=== PATIENT | female | born 1985 | race Caucasian/White ===

== ENCOUNTER → 2016-05-06 | Outpatient (CLI) | payer MEDICAID, OTHER ==
[~2016-05-06] MED LIST: ACET-703 PO; BENA25CA4; CARV12.5 PO; FERR325T PO; IBUP-232 PO; LEVO13.5 I-UTERINE; OXYC1TAB63 PO; PERI8.6T PO; PREN1CHW7 PO
== END ==
LOC: HPND 09:49
DX: O35.2XX0 Maternal care for (suspected) hereditary disease in fetus, not applicable or unspecified (principal); Q87.40 Marfan syndrome, unspecified; Z95.2 Presence of prosthetic heart valve; Z3A.25 25 weeks gestation of pregnancy
CPT/HCPCS: 76811; 76825; 76827; 93325

== ENCOUNTER → 2016-06-04 | Outpatient (CLI) | payer MEDICAID | LOC: HPND 09:38 | DX: O35.2XX0 Maternal care for (suspected) hereditary disease in fetus, not applicable or unspecified (principal); Q87.40 Marfan syndrome, unspecified; Z95.2 Presence of prosthetic heart valve; Z3A.30 30 weeks gestation of pregnancy | CPT/HCPCS: 76816 ==

== ENCOUNTER → 2016-07-04 | Outpatient (CLI) | payer MEDICAID | LOC: HPND 09:24 | PROVIDERS: ATTEND Obstetrics & Gynecology | DX: O35.2XX0 Maternal care for (suspected) hereditary disease in fetus, not applicable or unspecified (principal); Z3A.34 34 weeks gestation of pregnancy | CPT/HCPCS: 76816 ==

== ENCOUNTER → 2016-07-23 | Outpatient (CLI) | payer MEDICAID | LOC: HPND 09:37 | PROVIDERS: ATTEND Obstetrics & Gynecology | DX: O35.2XX0 Maternal care for (suspected) hereditary disease in fetus, not applicable or unspecified (principal) | CPT/HCPCS: 76816 ==

== ENCOUNTER 2016-08-08 08:10 | Inpatient (IN) | payer MEDICAID ==
[2016-08-08] VITALS (8 sets, daily range): BP systolic 105–138; BP diastolic 69–83; PULSE 76–85; RESP 15–18; TEMP 97.7–98.9
[~2016-08-08] VITALS: Ht 182.9 cm; Wt 80.3 kg
[~2016-08-08 08:10] MED LIST changes: -FERR325T PO; -IBUP-232 PO; -LEVO13.5 I-UTERINE; -OXYC1TAB63 PO; -PERI8.6T PO
[2016-08-08] MEDS ORDERED: LACTATED RINGER'S 1000 ML INJ 1,000 ML IV ONE (09:31)
[2016-08-08] MEDS ORDERED: ceFAZolin 2 GM PREMIX 50 ML IV ONE (09:45)
[2016-08-08 09:48] LABS: AUTOMATED NEUTROPHIL # 8.8 TH/MM3 (1.8-7.7); BASOPHIL % 0.3 % (0.0-2.0); EOSINOPHIL # 0.1 TH/MM3 (0-0.4); HEMATOCRIT 35.4 % (35.0-46.0); HEMO FLAGS DIFF FINAL; LYMPH % 16.5 % (9.0-44.0); LYMPHOCYTE # 1.9 TH/MM3 (1.0-4.8); MEAN CELL VOLUME 83.7 FL (80.0-100.0); MEAN CORPUSCULAR HEMOGLOBIN 27.3 PG (27.0-34.0); MEAN CORPUSCULAR HGB CONC 32.6 % (32.0-36.0); MONO % 6.2 % (0.0-8.0); PLATELET COUNT 210 TH/MM3 (150-450); RED BLOOD COUNT 4.23 MIL/MM3 (4.00-5.30); RED CELL DISTRIBUTION WIDTH 15.4 % (11.6-17.2); WHITE BLOOD COUNT 11.6 TH/MM3 (4.0-11.0)
[2016-08-08 10:01] LABS: BACTERIA, URINE RARE /hpf; BLOOD, URINE NEG (NEG); GLUCOSE,URINE NEG (NEG); HYALINE CAST, URINE 1 /lpf (RARE); KETONE, URINE NEG (NEG); MUCUS URINE FEW /lpf (OCC); NITRITE,URINE NEG (NEG); PH, URINE 6.5 (5.0-8.5); SQUAMOUS EPITHELIAL CELL URINE 13 /hpf (0-5); URINE COLOR YELLOW (YELLW/STRAW)
[2016-08-08] MEDS ORDERED: LACTATED RINGER'S 1000 ML INJ 1,000 ML IV SCH ×2 (10:01→17:40)
[2016-08-08 10:04] LABS: COMMENT (UR) CATH-CULTURE IND; CULTURE IF INDICATED CATH CULTURE IND
[2016-08-08] MEDS ORDERED: AMPICILLIN INJ 2,000 MG in SODIUM CHLORIDE 0.9% INJ 100 ML IV ONE (10:45)
--- NOTE | 2016-08-08 11:03 | HHI.HP ---
HPI Chief Complaint section Date Seen: Aug 08, 2016 Travel History International Travel<30 Days: No Contact w/Intl Traveler<30Days: No History of Present Illness HPI Ms. Ortiz is a 30 yo at 39 2/7 weeks with PMH of Marfan's syndrome who presents for scheduled section. Ms. Ortiz reports that she is doing well at this time. Patient does not report shortness of breath, leg swelling, cough, chest pain, palpitations, headaches/vision changes, dysuria, or other symptoms at this time. Patient reports that she feels sporadic contractions but not irregular contractions. Patient reports normal movement. No reported loss of vaginal fluid or vaginal bleeding. Patient reportedly gets cardiology care for Marfan's at [facility]. Per review of records, patient's last echocardiogram was 07/2016; patient with normal ejection fraction/LV function. Bioprosthetic valve visualized. Trace mitral and tricuspid regurg. Patient also reports history of Ledezma dez placement for severe scoliosis. Patient on carvedilol 12.5 mg twice a day; she reportedly has had symptoms of palpitations dictations but recent Holter monitor 03/2016 with no arrhythmia other than PACs/PVCs. Para: 0 : 1 History Past Medical History Narrative Medical Marfan syndrome Psoriasis Raynaud's Obstetric History Obstetric History G1 Past Surgical History Narrative Surgical Spinal fusion for scoliosis Bovine mitral valve replacement Family History Narrative Family History FatherMarfan's syndrome Cousinneurofibromatosis Unspecified breast cancer Thyroid cancer Social History Narrative Social History Quit smoking upon learned she is Alcohol Use: No Tobacco Use: No Substance Abuse: No Allergies-Medications (Allergen,Severity, Reaction): Coded Allergies: No Known Allergies (Unverified , 07/31/16) Home Meds Active Scripts Vit W/ Ferric Phospha (Vitafol Gummies 3.33-0.333-34.8 mg)1 Chw Chw3 Tab PO DAILY #90 BOTTLE Ref 11 Prov:Virginia Mares 06/20/16 Reported Medications Diphenhydramine HCl (Benadryl Allergy)25 Mg Cap 07/23/16 Acetaminophen (Tylenol Extra Strength)500 Mg Tab1,000 Mg PO ONCE Ref 0 07/23/16 Carvedilol (Coreg)12.5 Mg Tab12.5 Mg PO BID #60 TAB Ref 0 06/20/16 Review of Systems General / Constitutional: No: Fever, Chills Eyes: No: Blurred Vision HENT: No: Headaches Cardiovascular: No: Chest Pain or Discomfort Respiratory: No: Short of Breath Gastrointestinal: No: Nausea, Vomiting Genitourinary: No: Frequency Physical Exam BP 100/61 HR 63 RR 16 T 98.2 Narrative GENERAL: Well-nourished, well-developed patient. SKIN: Warm and dry. HEAD: Normocephalic and atraumatic. EYES: No scleral icterus. No injection or drainage. ENT: No nasal drainage noted. Mucous membranes pink. Airway patent. CARDIOVASCULAR: Regular rate and rhythm without murmurs. Normal perfusion RESPIRATORY: CTAB, normal rate ABDOMEN/GI: Abdomen soft, non-tender, bowel sounds present, no rebound, no guarding Gravid EXTREMITIES: No cyanosis or edema. NEUROLOGICAL: Awake and alert. Motor and sensory function grossly within normal limits. GENITOURINARY: Uterine Contractions: Occasional, >10 min interval, on CTG FHT's: Category:1 Baseline: 130 Reactive: Y Variability: Mod Decels: None Data Data Vital Signs Reviewed: Yes Orders Admit To Inpatient (08/08/16 ) Code Status (08/08/16 09:31) Vital Signs (Adult) .ON ADMISSION (08/08/16 09:31) Activity Oob Ad Kristine (08/08/16 09:31) Heart (08/08/16 09:31) Urinary Catheter Management RONNIE.Q8H (08/08/16 09:31) ^ Preps (08/08/16 09:31) Scd / Mo / Foot Pump RONNIE.QSHIFT (08/08/16 09:31) ^ Ultrasound For Locatio (08/08/16 09:31) Diet Npo (08/08/16 Breakfast) Lactated Ringer's 1000 Ml Inj (Lr 1000 M (08/08/16 09:31) Lactated Ringer's 1000 Ml Inj (Lr 1000 M (08/08/16 10:01) Citric Acid-Sodium Citrate Liq (Bicitra (08/08/16 11:15) Type And Screen (08/08/16 09:31) Complete Blood Count With Diff (08/08/16 09:31) Urinalysis - C+S If Indicated (08/08/16 09:31) Inpatient Certification (08/08/16 ) Specimen To Be Collected PRN (08/08/16 09:31) Cefazolin 2 Gm Premix (Ancef 2 Gm Premix (08/08/16 09:45) Urine Culture (08/08/16 08:39) Labs Laboratory Tests Test 08/08/16 08:39 White Blood Count 11.6 Red Blood Count 4.23 Hemoglobin 11.5 Hematocrit 35.4 Mean Corpuscular Volume 83.7 Mean Corpuscular Hemoglobin 27.3 Mean Corpuscular Hemoglobin 32.6 Concent Red Cell Distribution Width 15.4 Platelet Count 210 Mean Platelet Volume 8.9 Neutrophils (%) (Auto) 76.0 Lymphocytes (%) (Auto) 16.5 Monocytes (%) (Auto) 6.2 Eosinophils (%) (Auto) 1.0 Basophils (%) (Auto) 0.3 Neutrophils # (Auto) 8.8 Lymphocytes # (Auto) 1.9 Monocytes # (Auto) 0.7 Eosinophils # (Auto) 0.1 Basophils # (Auto) 0.0 CBC Comment DIFF FINAL Differential Comment Urine Color YELLOW Urine Turbidity HAZY Urine pH 6.5 Urine Specific [place] 1.011 Urine Protein NEG Urine Glucose (UA) NEG Urine Ketones NEG Urine Occult Blood NEG Urine Nitrite NEG Urine Bilirubin NEG Urine Urobilinogen LESS THAN 2.0 Urine Leukocyte Esterase NEG Urine RBC LESS THAN 1 Urine WBC 2 Urine Squamous Epithelial 13 Cells Urine Bacteria RARE Urine Hyaline Casts 1 Urine Mucus FEW Microscopic Urinalysis Comment CATH-CULTURE IND Blood Type A POSITIVE Blood Bank Comment Date/Time Procedure Status Source Growth 08/08/16 08:39 Urine Culture Received Urine Catheterized Urine Pending Assessment/Plan Problem List: (1) Marfan syndrome (2) Term (3) Mitral valve replaced Assessment and Plan 30 yo at 39 2/7 weeks with PMH of Marfan's syndrome who presents for scheduled delivery -PMH/PSH Marfan's Syndrome/ s/p Bovine valve replacement -07/22/2016 echo w/ normal systolic function -PSH Ledezma's rods/spinal fusion for scoliosis -Cat 1 rhythm -No symptoms of cardiovascular compromise Plan: -Will plan for delivery as scheduled -Will give pre-op Ampicillin 2g IV in addition to Ancef 2gm IV -Will order blood typing/screen, CBC, UA -Continue to monitor EFM -Continue home Carvedilol 12.5mg BID Remarks Supplemental history obtained by nursing staff patient had prior history of IV drug abuse in 2011; we'll plan to clarify further. UDS added to labs Florin Foster MD R2 Aug 08, 2016 11:02
[2016-08-08] MEDS ORDERED: CITRIC ACID-SODIUM CITRATE LIQ 30 ML UDC PO SCH (11:15)
[2016-08-08] MEDS ORDERED: OXYTOCIN 10 UNIT/ML AMP ONE (11:21)
[2016-08-08 12:04] LABS: BLOOD GAS BASE EXCESS -0.7 mmol/L (-2-2); BLOOD GAS O2 HGB SATURATION 39 % (90-100); CORD BLOOD GAS HCO3 24 mmol/L (21-29); CORD BLOOD GAS PCO2 47 mmHG (34-78); CORD BLOOD GAS PH 7.34 (7.14-7.42)
[2016-08-08 12:05] LABS: CORD BLOOD GAS PO2 21 mmHG (3.0-40.0); DRAW SITE CORD BLOOD; STAT NO
[2016-08-08] MEDS ORDERED: fentaNYL CITRATE 250 MCG/5 ML AMP ONE (12:23)
[2016-08-08] MEDS ORDERED: ACETAMINOPHEN 1000 MG/100 ML VIAL IV ONE ×2 (12:23→13:00)
[2016-08-08] MEDS ORDERED: HYDROmorphone HCL PF 2 MG/ML VIAL ONE (12:24)
[2016-08-08 12:37] LABS: AMPHETAMINE, URINE NEG (NEG); BARBITURATES, URINE NEG (NEG); COCAINE, URINE NEG (NEG)
--- NOTE | 2016-08-08 12:40 | PD.OB.DELI ---
Procedure Note Section Procedure Pre Op Diagnosis: (1) Marfan syndrome (2) Term (3) Mitral valve replaced (4) Severe scoliosis Pre Op Diagnosis s/p orta rods Post Op Diagnosis: Performed by Rosa Zimmerman Procedure: Primary Low Transverse Sec Indication for delivery: Maternal medical problems Informed consent obtained: For anesthesia Confirmed correct: Patient, Procedure, Time-out taken Anesthesia: Other (GETA) Medication prior to procedure: Antacids, Antibiotics, IV Urinary catheter: Inserted using sterile technique Sterile preparation: Duraprep Position: Supine with wedge to left side Operative Features Skin Incision: Pfannenstiel Uterine Incision: Low transverse w/knife / blunt ext Membranes Ruptured: Artificially, Appearance of fluid (moderate meconium) Presentation: Occiput anterior Time of : 11:39 Delivery of infant: Assisted : Male One Minute : 6 Five Minute : 9 Weight: 7#1oz, 3210gms Status of infant: Viable Placenta delivered: Intact Medications: Antibiotics Estimated blood loss: 800 Procedure tolerated: Well Maternal Condition: Stable Condition: Stable Rosa Zimmerman MD Aug 08, 2016 12:40
[2016-08-08] MEDS ORDERED: OXYTOCIN 30 UNITS-500ML PREMIX 500 ML IV ONE (12:45)
[2016-08-08] MEDS ORDERED: ONDANSETRON HCL 4 MG/2 ML VIAL IV PUSH PRN (12:45)
[2016-08-08] MEDS ORDERED: SODIUM CHLORIDE 0.9% FLUSH 10 ML FLUSH IV FLUSH PRN (12:45)
[2016-08-08] MEDS ORDERED: oxyCODONE/ACETAMINOPHEN 5 MG/325 MG TAB PO PRN (12:45)
[2016-08-08] MEDS ORDERED: HYDROmorphone HCL PCA 6 MG/30 ML IV ONE (12:52)
[2016-08-08] MEDS ORDERED: NALOXONE HCL 0.4 MG/ML AMP IV PRN (13:00)
[2016-08-08] MEDS ORDERED: HYDROmorphone HCL PCA 6 MG/30 ML IV SCH (13:00)
[2016-08-08] MEDS: HYDROmorphone HCL PF 1 MG/ML VIAL IV SCH ×4 (13:05→13:20)
[2016-08-08] MEDS ORDERED: PROPOFOL 200 MG/20 ML AMP IV ONE (13:26)
[2016-08-08] MEDS ORDERED: LACTATED RINGER'S 1,000 ML BAG IV ONE (13:26)
[2016-08-08] MEDS: diphenhydrAMINE HCL 25 MG CAP PO PRN (19:28)
[2016-08-08] MEDS: CARVEDILOL 12.5 MG TAB PO SCH (20:55)
[2016-08-08] MEDS ORDERED: SODIUM CHLORIDE 0.9% FLUSH 10 ML FLUSH IV FLUSH SCH (21:00)
[2016-08-08] MEDS: PCA - TOTAL MG DILAUDID DELIVERED PER SHIFT OTHER SCH (22:00)
[2016-08-08] MEDS ORDERED: OXYTOCIN 30 UNITS-500ML PREMIX 500 ML IV PRN (22:45)
[2016-08-09 00:29] VITALS: BP 124/67; PULSE 86; RESP 16; TEMP 98.8
[2016-08-09] MEDS: diphenhydrAMINE HCL 25 MG CAP PO PRN (01:46)
[2016-08-09 06:00] VITALS: BP 118/83; PULSE 86; RESP 16; TEMP 97.9
[2016-08-09] MEDS: PCA - TOTAL MG DILAUDID DELIVERED PER SHIFT OTHER SCH (06:00)
[2016-08-09 06:37] LABS: AUTOMATED NEUTROPHIL # 9.5 TH/MM3 (1.8-7.7); BASOPHIL # 0.1 TH/MM3 (0-0.2); BASOPHIL % 0.4 % (0.0-2.0); EOSINOPHIL # 0.1 TH/MM3 (0-0.4); EOSINOPHIL % 0.4 % (0.0-4.0); HEMATOCRIT 28.7 % (35.0-46.0); HEMO FLAGS DIFF FINAL; LYMPH % 14.6 % (9.0-44.0); LYMPHOCYTE # 1.8 TH/MM3 (1.0-4.8); MEAN CELL VOLUME 83.8 FL (80.0-100.0); MEAN CORPUSCULAR HEMOGLOBIN 28.6 PG (27.0-34.0); MEAN CORPUSCULAR HGB CONC 34.1 % (32.0-36.0); MONO % 7.7 % (0.0-8.0); NEUT % 76.9 % (16.0-70.0); PLATELET COUNT 190 TH/MM3 (150-450); RED BLOOD COUNT 3.43 MIL/MM3 (4.00-5.30); RED CELL DISTRIBUTION WIDTH 14.8 % (11.6-17.2); WHITE BLOOD COUNT 12.3 TH/MM3 (4.0-11.0)
--- NOTE | 2016-08-09 07:09 | HHI.OB ---
Subjective Post Operative Day: 1 Remarks 30 year old female s/p elective at 39/2 wks gestation, POD 1. AFVSS. Patient reports she is feeling well. Bleeding is decreasing and pain is well-controlled. She is formula feeding and bonding well with baby. Ambulating without difficulties. She is tolerating a liquid diet without nausea or vomiting and is requesting solid food. She has not had a bowel movement but does not want a stool softener as she reports having IBS. Denies chest pain, dysuria, shortness of breath, or calf pain. (Stephanie Casanova MD R2) Objective Vitals/I&O Vital Signs Date Time Temp Pulse Resp B/P Pulse Ox O2 Delivery O2 Flow Rate FiO2 08/09/16 06:00 97.9 86 16 118/83 08/09/16 06:00 16 08/09/16 00:29 98.8 08/09/16 00:29 86 16 124/67 08/08/16 22:00 14 08/08/16 21:51 14 08/08/16 19:54 98.0 81 15 116/75 08/08/16 15:10 85 105/71 08/08/16 15:10 98.9 16 08/08/16 13:45 98.0 79 17 128/72 08/08/16 13:30 76 17 127/69 08/08/16 13:15 81 16 121/69 08/08/16 13:00 80 18 08/08/16 12:52 17 08/08/16 12:40 18 08/08/16 12:40 81 123/81 08/08/16 12:27 97.7 17 08/08/16 12:27 82 138/83 (Stephanie Casanova MD R2) Result Diagram: 08/10/16 0601 Objective Remarks GENERAL: Well-nourished, well-developed patient. CARDIOVASCULAR: Regular rate and rhythm without murmurs, gallops, or rubs. RESPIRATORY: Breath sounds equal bilaterally. No accessory muscle use. ABDOMEN/GI: Abdomen soft, non-tender. Incision: Bandage Clean, dry and intact. Fundus: Firm, non-tender at umbilicus. GENITOURINARY: Light to moderate bleeding. EXTREMITIES: No cyanosis or edema, non-tender, without signs of DVT. Medications and IVs Current Medications Medications (Trade) Dose Ordered Sig/Mike Route Start Time Stop Time Status Last Admin Lactated Ringer's 1,000 ml @ 150 mls/hr Q6H40M IV 08/08/16 10:01 08/08/16 09:00 (Lr 1000 ml Inj) 1,000 ml @ 100 mls/hr Q10H IV 08/08/16 17:40 08/09/16 13:39 08/08/16 20:55 (NS Flush) 2 ml BID IV FLUSH 08/08/16 21:00 (NS Flush) 2 ml UNSCH PRN IV FLUSH 08/08/16 12:45 (Mylicon Chew) 80 mg QID PRN PO 08/08/16 12:45 (Motrin) 600 mg Q6H PRN PO 08/08/16 12:45 (Percocet 5-325 Mg) 1 tab Q4H PRN PO 08/08/16 12:45 (Percocet 5-325 Mg) 2 tab Q4H PRN PO 08/08/16 12:45 (M-M-R Ii Inj) 0.5 ml ONCE ONCE SQ 08/09/16 16:00 08/09/16 16:01 (Boostrix Inj) 0.5 ml ONCE ONCE IM 08/09/16 16:00 08/09/16 16:01 (Zofran Inj) 4 mg Q6H PRN IV PUSH 08/08/16 12:45 (Narcan Inj) 0.4 mg UNSCH PRN IV 08/08/16 13:00 (Benadryl) 25 mg Q6H PRN PO 08/08/16 13:00 08/09/16 01:46 (Dilaudid GLUER MACHINE SETUP OPERATOR Inj) 6 mg UNSCH IV 08/08/16 13:00 08/08/16 21:51 GLUER MACHINE SETUP OPERATOR Dosage Infused (Pha) 1 Q8HR OTHER 08/08/16 14:00 08/09/16 06:00 (Coreg) 12.5 mg BID PO 08/08/16 21:00 08/08/16 20:55 (Stephanie Casanova MD R2) Assessment/Plan Problem List: (1) Marfan syndrome (2) Term (3) Mitral valve replaced Assessment and Plan 30 yo female s/p elective POD 1. -PMH/PSH Marfan's Syndrome/ s/p Bovine valve replacement -07/22/2016 echo w/ normal systolic function -PSH Ledezma's rods/spinal fusion for scoliosis - AFVSS - Continue routine care * Continue home Carvedilol 12.5mg BID - Motrin and Percocet PRN pain - Encourage OOB - Pelvic rest x 6 wks. Will need a f/u appt in 1wk for incision check. - Contraception: Plans on getting an IUD placement as an outpatient - Recommend post follow up in 6 wks with A woman - Anticipate D/C in 1-[address] Zimmerman (Stephanie Casanova MD R2) Collaborating Comments Discussed patient care with resident service, I agree with management plan. ( Rosa Zimmerman MD) Stephanie Casanova MD R2 Aug 09, 2016 07:08 Rosa Zimmerman MD Aug 11, 2016 20:50
[2016-08-09 08:08] VITALS: BP 120/82; PULSE 87; RESP 18; TEMP 98.3
[2016-08-09] MEDS: CARVEDILOL 12.5 MG TAB PO SCH ×2 (08:54→21:02)
[2016-08-09] MEDS: SIMETHICONE 80 MG CHEWABLE TAB PO PRN ×2 (08:56→17:59)
[2016-08-09] MEDS: oxyCODONE/ACETAMINOPHEN 5 MG/325 MG TAB PO PRN ×2 (13:39→22:04)
[2016-08-09] MEDS: IBUPROFEN 600 MG TAB PO PRN ×2 (13:42→22:03)
[2016-08-09 14:40] VITALS: BP 134/85; PULSE 81; RESP 18; TEMP 98.4
[2016-08-09] MEDS ORDERED: DIPHTH/TETANUS/ACEL PERTUSSIS (BOOSTER) 0.5 ML VIAL/PFS IM ONE (16:00)
[2016-08-09] MEDS ORDERED: MEASLES, MUMPS, RUBELLA VACCINE 0.5 ML VIAL SQ ONE (16:00)
[2016-08-09 20:30] VITALS: BP 129/81; PULSE 87; RESP 16; TEMP 98.1
[2016-08-09] MEDS: ZOLPIDEM TARTRATE 5 MG TAB PO PRN (21:02)
[2016-08-10] MEDS: IBUPROFEN 600 MG TAB PO PRN ×3 (06:40→17:22)
[2016-08-10] MEDS: oxyCODONE/ACETAMINOPHEN 5 MG/325 MG TAB PO PRN ×4 (06:41→22:14)
[2016-08-10 06:42] LABS: HEMATOCRIT 30.7 % (35.0-46.0); MEAN CELL VOLUME 84.5 FL (80.0-100.0); MEAN CORPUSCULAR HEMOGLOBIN 28.2 PG (27.0-34.0); MEAN CORPUSCULAR HGB CONC 33.3 % (32.0-36.0); PLATELET COUNT 219 TH/MM3 (150-450); RED BLOOD COUNT 3.64 MIL/MM3 (4.00-5.30); RED CELL DISTRIBUTION WIDTH 14.9 % (11.6-17.2); REVIEW FLAG FINAL; WHITE BLOOD COUNT 11.1 TH/MM3 (4.0-11.0)
[2016-08-10 08:00] VITALS: BP 128/74; PULSE 83; RESP 18; TEMP 98.4
[2016-08-10] MEDS: CARVEDILOL 12.5 MG TAB PO SCH ×2 (08:29→21:06)
[2016-08-10] MEDS: DOCUSATE CALCIUM 240 MG CAP PO SCH (08:29)
--- NOTE | 2016-08-10 09:11 | HHI.OB ---
Subjective Post Operative Day: 2 Remarks 30-year-old female w/ PMHx of Marfan syndrome, who delivered via section on 08/08/2016. She is postoperative day #2. Her hemoglobin has been stable, and she's been afebrile and her vital signs at goal. She is on carvedilol 12.5 mg twice a day. She has a history of bilateral prosthetic valve replacement (mitral valve) and this has remained stable throughout her (evaluated by repeat echocardiograms). She denies any lower extremity edema, chest pain, shortness of breath. Her vaginal bleeding is less than her period. She is eating, ambulating, and her pain is well controlled. She does not want to breast-feed because she does not want to introduce any drugs into the baby. Objective Vitals/I&O Vital Signs Date Time Temp Pulse Resp B/P Pulse Ox O2 Delivery O2 Flow Rate FiO2 08/10/16 08:00 98.4 83 18 128/74 08/09/16 20:30 98.1 87 16 08/09/16 20:30 129/81 08/09/16 14:40 98.4 81 18 134/85 Result Diagram: 08/10/16 0601 Objective Remarks GENERAL: Well-nourished, well-developed patient. CARDIOVASCULAR: S3 heart gallop, faint murmur over the left sternal border. Periodic PVCs, good pulses to all extremities. RESPIRATORY: Breath sounds equal bilaterally. No accessory muscle use. ABDOMEN/GI: Abdomen soft, non-tender. Incision: Bandage Clean, dry and intact. Fundus: Firm, non-tender at umbilicus. GENITOURINARY: Light to moderate bleeding. EXTREMITIES: No cyanosis or edema, non-tender, without signs of DVT. Medications and IVs Current Medications Medications (Trade) Dose Ordered Sig/Mike Route Start Time Stop Time Status Last Admin (Lr 1000 ml Inj) 1,000 ml @ 150 mls/hr Q6H40M IV 08/08/16 10:01 08/08/16 09:00 (NS Flush) 2 ml BID IV FLUSH 08/08/16 21:00 (NS Flush) 2 ml UNSCH PRN IV FLUSH 08/08/16 12:45 (Mylicon Chew) 80 mg QID PRN PO 08/08/16 12:45 08/09/16 17:59 (Motrin) 600 mg Q6H PRN PO 08/08/16 12:45 08/10/16 06:40 (Percocet 5-325 Mg) 1 tab Q4H PRN PO 08/08/16 12:45 08/09/16 18:00 (Percocet 5-325 Mg) 2 tab Q4H PRN PO 08/08/16 12:45 08/10/16 06:41 (Zofran Inj) 4 mg Q6H PRN IV PUSH 08/08/16 12:45 (Narcan Inj) 0.4 mg UNSCH PRN IV 08/08/16 13:00 (Benadryl) 25 mg Q6H PRN PO 08/08/16 13:00 08/09/16 01:46 (Dilaudid QUALIFIED CRAFT WORKER ELECTRICIAN Inj) 6 mg UNSCH IV 08/08/16 13:00 08/08/16 21:51 QUALIFIED CRAFT WORKER ELECTRICIAN Dosage Infused (Pha) 1 Q8HR OTHER 08/08/16 14:00 08/09/16 06:00 (Coreg) 12.5 mg BID PO 08/08/16 21:00 08/10/16 08:29 (Ambien) 5 mg HS PRN PO 08/09/16 08:45 08/09/16 21:02 (Surfak) 240 mg DAILY PO 08/10/16 09:00 08/10/16 08:29 Assessment/Plan Problem List: (1) Marfan syndrome (2) Term (3) Mitral valve replaced Assessment and Plan 30 yo female s/p elective POD 2. - PMH/PSH Marfan's Syndrome/ s/p Bovine valve replacement -07/22/2016 echo w/ normal systolic function - PS Ledezma's rods/spinal fusion for scoliosis - AFVSS - Continue routine care * Continue home Carvedilol 12.5mg BID - HR is controlled - Motrin and Percocet PRN pain - Encourage OOB - Pelvic rest x 6 wks. Will need a f/u appt in 1wk for incision check. - Contraception: Plans on getting an IUD placement as an outpatient - Recommend post follow up in 6 wks - Anticipate D/C tomorrow 08/11/16. maritza El. Carlyle Torres MD R2 Aug 10, 2016 09:11
[2016-08-10 20:00] VITALS: BP 141/86; PULSE 84; RESP 16; TEMP 98.1
[2016-08-10] MEDS: ZOLPIDEM TARTRATE 5 MG TAB PO PRN (21:06)
[2016-08-11] MEDS: IBUPROFEN 600 MG TAB PO PRN ×3 (02:10→15:10)
[2016-08-11] MEDS: oxyCODONE/ACETAMINOPHEN 5 MG/325 MG TAB PO PRN ×3 (02:10→13:14)
[2016-08-11 08:25] VITALS: BP 121/76; PULSE 86; RESP 18; TEMP 98.1
--- NOTE | 2016-08-11 08:44 | HHI.OB ---
Subjective Post Operative Day: 3 Remarks Ms. Ortiz is a 30 yo w/ PMH Marfan Syndrome who is POD 3 from CS (08/08 at 1139) Patient afebrile with stable vital signs. Patient reports that she is doing well at this time and that her pain is controlled with Motrin and Percocet. Patient ambulating normally. Patient does not report shortness of breath, leg swelling, or dysuria. Patient formula feeding. Patient passing gas normally. Objective Vitals/I&O Vital Signs Date Time Temp Pulse Resp B/P Pulse Ox O2 Delivery O2 Flow Rate FiO2 08/11/16 08:25 98.1 86 18 121/76 08/10/16 20:00 98.1 84 16 141/86 Result Diagram: 08/10/16 0601 Objective Remarks GENERAL: Well-nourished, well-developed patient. CARDIOVASCULAR: Systolic murmur, periodic premature beats. Normal perfusion RESPIRATORY: CTAB, normal rate ABDOMEN/GI: Abdomen soft, non-tender. Incision: Clean, dry and intact. Fundus: Firm, non-tender at umbilicus. GENITOURINARY: Light to moderate bleeding. EXTREMITIES: No cyanosis or edema, non-tender, without signs of DVT. Medications and IVs Current Medications Medications (Trade) Dose Ordered Sig/Mike Route Start Time Stop Time Status Last Admin (Lr 1000 ml Inj) 1,000 ml @ 150 mls/hr Q6H40M IV 08/08/16 10:01 08/08/16 09:00 (NS Flush) 2 ml BID IV FLUSH 08/08/16 21:00 (NS Flush) 2 ml UNSCH PRN IV FLUSH 08/08/16 12:45 (Mylicon Chew) 80 mg QID PRN PO 08/08/16 12:45 08/09/16 17:59 (Motrin) 600 mg Q6H PRN PO 08/08/16 12:45 08/11/16 02:10 (Percocet 5-325 Mg) 1 tab Q4H PRN PO 08/08/16 12:45 08/09/16 18:00 (Percocet 5-325 Mg) 2 tab Q4H PRN PO 08/08/16 12:45 08/11/16 02:10 (Zofran Inj) 4 mg Q6H PRN IV PUSH 08/08/16 12:45 (Narcan Inj) 0.4 mg UNSCH PRN IV 08/08/16 13:00 (Benadryl) 25 mg Q6H PRN PO 08/08/16 13:00 08/09/16 01:46 (Dilaudid CAGE MANAGER Inj) 6 mg UNSCH IV 08/08/16 13:00 08/08/16 21:51 CAGE MANAGER Dosage Infused (Pha) 1 Q8HR OTHER 08/08/16 14:00 08/09/16 06:00 (Coreg) 12.5 mg BID PO 08/08/16 21:00 08/10/16 21:06 (Ambien) 5 mg HS PRN PO 08/09/16 08:45 08/10/16 21:06 (Surfak) 240 mg DAILY PO 08/10/16 09:00 08/10/16 08:29 Assessment/Plan Problem List: (1) Marfan syndrome (2) Term (3) Mitral valve replaced (4) examination following delivery Assessment and Plan 30 yo w/ PMH Marfan Syndrome who is POD 3 from CS (08/08 at 1139) Continue routine care -Continue to monitor VS, vaginal bleeding - Motrin and Percocet PRN pain - Encourage OOB - Pelvic rest x 6 wks - Contraception: Plans on getting an IUD placement as an outpatient - Patient advised to obtain incision check in 1 week - Anticipate D/C today PMH/PSH Marfan's Syndrome Impression: s/p Bovine valve replacement (07/22/2016 echo w/ normal systolic function) -Patient counselled to seek medical care with any peripartum cardiac/ respiratory concerns -Continue home Carvedilol 12.5mg BID per patient's Feeder Switchboard Operator Florin Foster MD R2 Aug 11, 2016 08:44
--- NOTE | 2016-08-11 08:44 | HHI.DCPOC ---
Discharge Care Plan Diagnosis: (1) examination following delivery Report Symptoms to Your Doctor -Temperate above 100.5 degrees -Redness, of incision or excessive or foul smelling drainage -Unusual pain or calf pain -Increased vaginal bleeding -Painful or difficulty urinating -Feelings of extreme sadness or anxiety after 2 weeks Goals to Promote Your Health * To prevent worsening of your condition and complications * To maintain your health at the optimal level Directions to Meet Your Goals Take your medications as prescribed Follow your dietary instruction Follow activity as directed Ensure plenty of rest for recovery Drink fluids for hydration Keep your appointments as scheduled Take your immunizations and boosters as scheduled If your symptoms worsen call your PCP, if no PCP go to Urgent Care Center or Emergency Room Smoking is Dangerous to Your Health. Avoid second hand smoke Call the 24-hour crisis hotline for domestic abuse at Florin Foster MD R2 Aug 11, 2016 08:44
[2016-08-11] MEDS ORDERED: IBUP-232 PO (08:51)
[2016-08-11] MEDS ORDERED: OXYC1TAB63 PO (08:51)
[2016-08-11] MEDS ORDERED: FERR325T PO (08:51)
[2016-08-11] MEDS ORDERED: PERI8.6T PO (08:51)
[2016-08-11] MEDS: DOCUSATE CALCIUM 240 MG CAP PO SCH (09:10)
[2016-08-11] MEDS: CARVEDILOL 12.5 MG TAB PO SCH (09:10)
--- NOTE | 2016-08-11 10:52 | MP ---
cc: MARY LUNDY M.D. DATE OF SURGERY: 08/08/2016. PREOPERATIVE DIAGNOSIS: 1. Marfan's syndrome. 2. Term . 3. History of bacterial endocarditis with a mitral valve replacement with a bovine valve. 4. Severe scoliosis corrected with Ledezma rods as a child. POSTOPERATIVE DIAGNOSIS: 1. Marfan's syndrome. 2. Term . 3. History of bacterial endocarditis with a mitral valve replacement with a bovine valve. 4. Severe scoliosis corrected with Ledezma rods as a child. OPERATIVE PROCEDURE PERFORMED: Primary low transverse section without extension. SURGEON: Mary Lundy MD. MANAGER APPLICATION: Florin Foster. ESTIMATED BLOOD LOSS: 800 cc. ANESTHETIC: General endotracheal anesthesia. MEDICATIONS: Ampicillin was given for cardiac prophylaxis and Ancef 2 grams was given IV. DRAINS: Pleitez to gravity. COMPLICATIONS: No complications. COUNTS: Correct x3. FINDINGS: 1. Normal tubes and ovaries bilaterally. The kidneys were both palpated. 2. Meconium-stained amniotic fluid. 3. 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 4. male. Apgars were 6 and 9 with moderate meconium stained amniotic fluid. The baby was 7 pounds 1 ounce, delivered in the vertex presentation. DESCRIPTION OF THE PROCEDURE IN DETAIL: The patient was taken back to the operating room and prepped and draped in the usual sterile fashion and placed in the dorsal supine position. After adequate anesthetic was obtained, a wedge was placed to her left side and a Pfannenstiel's incision was made in the skin and taken down to the fascia. The fascia was nicked in the midline and extended bilaterally. The fascia was noted to be very attenuated and no musculature was noted here in the abdominal cavity. The peritoneum was entered. An Seth retractor was placed. The uterus was noted to be abnormal at this time and a hysterotomy incision was made bluntly and extended bilaterally. The bag of water was ruptured at the infant's head was delivered to the operative field. Nuchal cord x1 was reduced and the rest of the body was delivered and then handed off to the resuscitation team for continued care. I doubly clamped the cord segment and it was taken for cord blood analysis and for arterial blood gas. The placenta was delivered intact spontaneously. The endometrial cavity was curetted with a moist laparotomy sponge. The hysterotomy incision was repaired using running locking chromic with good hemostasis at closure. The gutters were rendered free of all blood and clot material. The Seth was removed. Counts were correct. Fascia was closed with #1 PDS suture in a running fashion. The subcuticular tissue was made hemostatic with the bovie. The skin was closed both with a 3-0 Monocryl as well as Dermabond as her tissue appeared to be fairly weak and attenuated. The patient tolerated procedure well. She was taken back to the recovery room after extubation. MD HERMES Jiménez/JEANA /1:23 PM /10:42 AM MTDD
[2016-08-13 10:39] LABS: PHENCYCLIDINE URINE NEG (NEG)
[2016-08-13 10:40] LABS: ECSTASY (MDMA) UR NEG (NEG); HEROIN (6-ACETYLMORPHINE) UR NEG (NEG); K2 SPICE UR NEG (NEG); OBMETHADONE UR NEG (NEG)
[2016-08-13 10:41] LABS: BATH SALTS (MDPV) UR NEG (NEG); GABAPENTIN UR NEG (NEG); OXYCODONE (PERCODAN) NEG (NEG)
[2016-08-13 10:42] LABS: HYDROMORPHONE U NEG (NEG)
[2016-10-09] MEDS ORDERED: LEVO13.5 I-UTERINE (13:38)
== END 2016-08-11 15:59 | disposition home or self-care (01) | DRG 765 ==
LOC: H2EB 08:10 → H1EA 14:05
PROVIDERS: ADMIT Obstetrics & Gynecology Obstetrics; ATTEND Obstetrics & Gynecology Obstetrics
PROC: 10D00Z1 Extraction of Products of Conception, Low, Open Approach (ICD-10-PCS; principal; 2016-08-08)
DX: O99.42 Diseases of the circulatory system complicating childbirth (principal); Q87.40 Marfan syndrome, unspecified; M41.9 Scoliosis, unspecified; Z98.1 Arthrodesis status; O77.0 Labor and delivery complicated by meconium in amniotic fluid; O69.81X0 Labor and delivery complicated by cord around neck, without compression, not applicable or unspecified; I49.3 Ventricular premature depolarization; Z37.0 Single live birth; Z3A.39 39 weeks gestation of pregnancy; Z87.891 Personal history of nicotine dependence; Z95.3 Presence of xenogenic heart valve
CPT/HCPCS: 59025; 80307; 80348; 81001; 82805; 85025; 85027; 86850; 86900; 86901; 87086; 88307; 90715; G0480; G0481; J0131; J0290; J1170; J2590; J3010; J7120